=== PATIENT | female | born 1985 | race Two or more races ===

== ENCOUNTER 2025-05-07 04:26 | Inpatient (IN) | payer MEDICAID ==
[~2025-05-07] VITALS: Ht 160 cm; Wt 98.6 kg
--- NOTE | 2025-05-07 05:39 | ED.PDOC ---
GI ASSESSMENT HPI Comments 40-year-old female who came to the ER for abdominal pain. Patient states she was awakened around 12 midnight due to sudden-onset lower abdominal pain, describe a sharp, constant, nonradiating, associated with chills, nausea and vomiting. She denies any urinary symptoms such as dysuria or gross hematuria. She denies any fever, vaginal bleeding or discharge. Denies any possibility of Chief Complaint: Abdominal Pain Time Seen by MD: 05:39 Reviewed Notes: Nurses Notes Allergies: Coded Allergies: No Known Drug Allergy (Verified Allergy, Unknown, 05/07/25) Information Source: Patient Mode of Arrival: Ambulatory Timing: Hours Duration: Since onset Prehospital treatment: None Quality: Sharp Vomitus: Watery Stool: Normal Severity: Moderate Recent: None Recent Hx of: None Pain Location: Suprapubic Associated sign and symptoms: Nausea, Vomiting, Abdominal Pain Past Medical History PAST MEDICAL HISTORY: Denies Surgical History: Denies all surgeries CHANGE OVER History: Denies all CHANGE OVER Hx Family History Family History: Reviewed,noncontributory to illness Social History Smoker: Non-Smoker Alcohol: Denies ETOH Use Drugs: Denies Drug Use Lives In: Home Constitutional: denies: chills, diaphoresis, fatigue, fever, malaise, sweats, weakness, others EENTM: denies: blurred vision, double vision, ear bleeding, ear discharge, ear drainage, ear pain, ear ringing, eye pain, eye redness, hearing loss, mouth pain, mouth swelling, nasal discharge, nose bleeding, nose congestion, nose pain, photophobia, tearing, throat pain, throat swelling, voice changes, others Respiratory: denies: cough, hemoptysis, orthopnea, SOB at rest, shortness of breath, SOB with excertion, stridor, wheezing, others Cardiovascular: denies: chest pain, dizzy spells, diaphoresis, Dyspnea on exertion, edema, irregular heart beat, left arm pain, lightheadedness, palpitations, PND, syncope, others Gastrointestinal: reports: abdominal pain, nausea, vomiting; denies: abdomen distended, blood streaked bowels, constipated, diarrhea, dysphagia, difficulty swallowing, hematemesis, melena, poor appetite, poor fluid intake, rectal bleeding, rectal pain, others Genitourinary: denies: abnormal vagina bleeding, burning, dyspareunia, dysuria, flank pain, frequency, hematuria, incontinence, pain, , vagina discharge, urgency, others Neurological: denies: dizziness, fainting, headache, left sided numbness, left sided weakness, numbness, paresthesia, pre-existing deficit, right sided numbness, right sided weakness, seizure, speech problems, tingling, tremors, weakness, others Musculoskeletal: denies: back pain, gout, joint pain, joint swelling, muscle pain, muscle stiffness, neck pain, others Integumetry: denies: bruises, change in color, change in hair/nails, dryness, laceration, lesions, lumps, rash, wounds, others Allergic/Immunocompromised: denies: Difficulty Healing, Frequent Infections, Hives, Itching, others Hematologic/Lymphatic: denies: anemia, blood clots, easy bleeding, easy bruising, swollen glands, others Endocrine: denies: excessive hunger, excessive sweating, excessive thirst, excessive urination, flushing, intolerance to cold, intolerance to heat, unexplained weight gain, unexplained weight loss, others Psychiatric: denies: anxiety, bipolar disorder, depression, hopeless, panic disorder, schizophrenia, sleepless, suicidal, others Physical Exam General Appearance: Moderate Distress, Obese HEENT: Other (Pupils and face symmetric. Moist mucous membranes.) Neck: Full Range of Motion, Normal Inspection Respiratory: Lungs Clear, No Accessory Muscle Use, No Respiratory Distress, Normal Breath Sounds Cardiovascular: No Edema, No JVD, Regular Rate/Rhythm Breast Exam: Deferred Gastrointestinal: LLQ, RLQ, Soft, Suprapubic, Tenderness Genitalia: Deferred Pelvic: Deferred Rectal: Deferred Extremities: Normal inspection, Normal range of motion, Non-tender, No pedal edema Neurologic: Alert (Oriented x4), Normal Affect, Normal Mood, Other (Ambulatory) Cerebellar Function: NOT DONE Reflexes: NOT DONE Skin: Dry, Normal Color, Warm Lymphatic: NOT DONE Was a procedure done? Was a procedure done?: No GI differential Dx Differential Diagnosis: Appendicitis, Constipation, Diverticular disease, Dysmenorrhea, Ectopic , Gastritis/PUD, Gastroenteritis, Inflammatory BD, UTI, Urolithiasis, Food Poisoning, , Bacterial, Viral, Impaction, Kidney Stone X-Ray, Labs, Meds, VS Vital Signs Date Time Temp Pulse Resp B/P (MAP) Pulse Ox O2 Delivery O2 Flow Rate FiO2 05/07/25 06:16 95 20 129/58 05/07/25 06:15 Room Air* 0 21 05/07/25 06:15 97.8 95 20 129/58 (81) 97 97.8 05/07/25 05:27 98.6 110 22 138/70 (92) 96 98.6 Lab Test 05/07/25 04:52 Range/Units White Blood Count 17.3 H 4.4-10.8 10^3/uL Red Blood Count 5.09 4.0-5.20 10^6/uL Hemoglobin 15.7 12.2-16.2 g/dL Hematocrit 45.6 36.0-46.0 % Mean Corpuscular Volume 89.6 80.0-100.0 fL Mean Corpuscular Hemoglobin 30.8 28.0-32.0 pg Mean Corpuscular Hemoglobin Concent 34.4 32.0-36.0 g/dL Red Cell Distribution Width 14.8 H 11.8-14.3 % Platelet Count 305 140-450 10^3/uL Mean Platelet Volume 9.0 6.9-10.8 fL Neutrophils (%) (Auto) 79.3 37.0-80.0 % Lymphocytes (%) (Auto) 15.4 10.0-50.0 % Monocytes (%) (Auto) 4.2 0.0-12.0 % Eosinophils (%) (Auto) 0.8 0.0-7.0 % Basophils (%) (Auto) 0.3 0.0-2.0 % Neutrophils # (Auto) 13.8 H 1.6-8.6 10 ^3/uL Lymphocytes # (Auto) 2.7 0.4-5.4 10 ^3/uL Monocytes # (Auto) 0.7 0-1.3 10 ^3/uL Eosinophils # (Auto) 0.1 0-0.8 10 ^3/uL Basophils # (Auto) 0.1 0-0.2 10 ^3/uL Nucleated Red Blood Cells 0.0 % Sodium Level 141 136-145 mmol/L Potassium Level 4.2 3.5-5.1 mmol/L Chloride Level 104 98-107 mmol/L Carbon Dioxide Level 27 20-31 mmol/L Anion Gap 10 5-15 Blood Urea Nitrogen 11 9-23 mg/dL Creatinine 0.95 0.550-1.02 mg/dL Glomerular Filtration Rate Calc 78 >90 mL/min BUN/Creatinine Ratio 11.6 10.0-20.0 Serum Glucose 140 H 74-106 mg/dL Calcium Level 9.5 8.7-10.4 mg/dL Total Bilirubin 0.5 0.2-1.0 mg/dL Aspartate Amino Transferase (AST) 30 <34 U/L Alanine Aminotransferase (ALT) 44 H 7-40 U/L Alkaline Phosphatase 141 H 46-116 U/L Total Protein 8.1 5.7-8.2 g/dL Albumin 4.7 3.2-4.8 g/dL Lipase 37 12-53 U/L Current Medications Medications (Trade) Dose Ordered Sig/Nena Route Start Time Stop Time Status Last Admin Sodium Chloride 1,000 ml @ 1,000 mls/hr Q1H ONCE IV 05/07/25 05:15 05/07/25 06:14 DC 05/07/25 06:16 Ondansetron HCl (Zofran) 4 mg ONCE ONCE IV 05/07/25 05:15 05/07/25 05:16 DC 05/07/25 06:16 Morphine Sulfate 4 mg ONCE ONCE IV 05/07/25 05:15 05/07/25 05:16 DC 05/07/25 06:16 X-Ray, Labs, Meds, VS Comment 40-year-old female with no significant past medical history complaining of lower abdominal pain Vitals remarkable for heart rate 110, respiratory rate 22 Exam remarkable for lower abdominal tenderness to palpation Rhythm strip independently interpreted by me: Sinus tach, rate 110, no ectopy. CT abdomen and pelvis results pending CBC remarkable for WBC 17.3. CMP and lipase unremarkable. urine and UA results pending Patient treated with the following in the ED: 1 L 0.9 normal saline IV bolus, morphine 4 mg IV, Zofran 4 mg IV On re-evaluation, patient states pain has improved. Vitals were stable. Patient endorsed to the oncoming ED physician at 6:00 a.m. pending remainder of lab results, CT results and re-evaluation. Time of 1ST Reevaluation: 05:36 Reevaluation 1ST: Unchanged Patient Education/Counseling: Diagnosis, Treatment Family Education/Counseling: Diagnosis, Treatment SEPSIS Sepsis Screen Physician Orders Urinalysis (05/07/25 04:40) Ct Ab Pel Wo Con-No Oral Or Iv (05/07/25 04:40) Test, Urine (05/07/25 04:40) Vital Signs Date Time Temp Pulse Resp B/P (MAP) Pulse Ox O2 Delivery O2 Flow Rate FiO2 05/07/25 06:16 95 20 129/58 05/07/25 06:15 Room Air* 0 21 05/07/25 06:15 97.8 95 20 129/58 (81) 97 97.8 05/07/25 05:27 98.6 110 22 138/70 (92) 96 98.6 Laboratory Tests Test 05/07/25 04:52 White Blood Count 17.3 10^3/uL (4.4-10.8) H Medications Medications Dose Ordered Sig/Nena Route Start Time Stop Time Status Last Admin Dose Admin Morphine Sulfate 4 mg ONCE ONCE IV 05/07/25 05:15 05/07/25 05:16 DC 05/07/25 06:16 Ondansetron HCl 4 mg ONCE ONCE IV 05/07/25 05:15 05/07/25 05:16 DC 05/07/25 06:16 Sodium Chloride 1,000 ml @ 1,000 mls/hr Q1H ONCE IV 05/07/25 05:15 05/07/25 06:14 DC 05/07/25 06:16 Departure 1 Departure Time of Disposition: 06:00 Impression: Primary Impression: Lower abdominal pain Disposition: 30 STILL A PATIENT Condition: Guarded Critical Care Note Critical Care Time?: No Stability Stability form required: No Heart Score Heart Score: Heart Score Response (Comments) Value History N/A 0 EKG N/A 0 Age N/A 0 Risk Factors N/A 0 Troponin N/A 0 Total 0 I personally scribed for JIM GALLOWAY MD ([email or web address]) on 05/07/25 at 05:39. Electronically submitted by Rosalio Mehta ([email or web address]). JIM GALLOWAY MD May 07, 2025 05:39
[2025-05-07 05:43] LABS: Basophils # (auto) 0.1 10 ^3/uL (0-0.2); Basophils % (auto) 0.3 % (0.0-2.0); Eosinophils # (auto) 0.1 10 ^3/uL (0-0.8); Eosinophils % (auto) 0.8 % (0.0-7.0); Hematocrit 45.6 % (36.0-46.0); Hemoglobin 15.7 g/dL (12.2-16.2); Lymphocytes # (auto) 2.7 10 ^3/uL (0.4-5.4); Lymphocytes % (auto) 15.4 % (10.0-50.0); Mean Corpuscular Hemoglobin 30.8 pg (28.0-32.0); Mean Corpuscular Hgb Conc. 34.4 g/dL (32.0-36.0); Mean Corpuscular Volume 89.6 fL (80.0-100.0); Monocytes # (auto) 0.7 10 ^3/uL (0-1.3); Monocytes % (auto) 4.2 % (0.0-12.0); Neutrophils # (auto) 13.8 10 ^3/uL (1.6-8.6); Neutrophils % (auto) 79.3 % (37.0-80.0); Platelet Count (auto) 305 10^3/uL (140-450); Red Blood Cells 5.09 10^6/uL (4.0-5.20); Red Cell Distribution Width 14.8 % (11.8-14.3); White Blood Cell 17.3 10^3/uL (4.4-10.8)
[2025-05-07 06:04] LABS: Anion Gap 10 (5-15); BUN/Creatinine Ratio 11.6 (10.0-20.0); Blood Urea Nitrogen 11 mg/dL (9-23); Calcium 9.5 mg/dL (8.7-10.4); Carbon Dioxide 27 mmol/L (20-31); Chloride 104 mmol/L (98-107); Lipase 37 U/L (12-53); Potassium 4.2 mmol/L (3.5-5.1); Sodium 141 mmol/L (136-145); Total Protein 8.1 g/dL (5.7-8.2)
[2025-05-07 06:05] LABS: Albumin 4.7 g/dL (3.2-4.8); Aspartate Aminotransferase 30 U/L (<34); Bilirubin, Total 0.5 mg/dL (0.2-1.0)
[2025-05-07 06:13] LABS: Alanine Aminotransferase 44 U/L (7-40); Alkaline Phosphatase 141 U/L (46-116); Glucose 140 mg/dL (74-106)
[2025-05-07] MEDS: MORPHINE SULFATE 4 MG/ML SYR/VIAL IV ONE (06:16)
[2025-05-07] MEDS: SODIUM CHLORIDE 0.9% 1,000 ML IV ONE (06:16)
[2025-05-07] MEDS: ONDANSETRON HCL 4 MG/2 ML VIAL IV ONE ×2 (06:16→14:24)
[2025-05-07 07:55] LABS: Urine Bacteria FEW /hpf (None Seen); Urine Mucus FEW (None Seen); Urine Squamous Epithelial Cell MANY /hpf (<5); Urine WBC 11 /HPF (0-5)
[2025-05-07 07:56] LABS: Urine Clarity Hazy (Clear); Urine Color Yellow (Yellow)
[2025-05-07 07:57] LABS: Urine Blood Normal /uL (Negative); Urine Protein, UAD Negative (Negative); Urine Specific Gravity 1.027 (1.001-1.035); Urine Urobilinogen Normal (Negative); Urine pH 5.5 (5.0-9.0)
--- NOTE | 2025-05-07 08:22 | DVH ---
Exam: CT CT AB PEL WO CON-NO ORAL OR IV History: abd pain Comparison Study: None Technique: Multidetector spiral CT of the abdomen was performed from lung bases to pubic symphysis. Imaging was performed without IV contrast. Axial, coronal and sagittal multiplanar reformats were ob tained from the axial data set by the technologist. Radiation dose : 1. Abdomen/Pelvis: CTDIvol 24.99 mGy, DLP 1258.84 mGy*cm. Findings: Image lower lungs are unremarkable. The liver, spleen, pancreas, and adrenal glands are within normal limits. Status post cholecystectomy . The kidneys and urinary bladder within normal limits. And the uterus is retroverted with an intrauter ine device which appears in good position. 2.5 cm left ovarian cyst. The appendix is dilated with associated inflammatory change. There is slight matting of the adjacent small bowel loops with reactive haziness of the mesentery. IMPRESSION: 1. Findings compatible with acute appendicitis. No abscess or free air.
--- NOTE | 2025-05-07 09:11 | DVHHP2 ---
History of Present Illness Reason for Visit: Abdominal pain History of Present Illness 40-year-old female no past medical history surgical history gallbladder surgery chief complaint patient complain of lower abdominal pain it started at midnight at last night. Patient states pain is sharp in nature movement makes it worse leaning forward improves the pain she does complain of chills but no fever patient states she had to take Tylenol but it did not improve her symptoms patient states she did not vomited 6 times but there was no blood there she had not able to keep anything down she denies any diarrhea she denies any chest pain no shortness with the breath when evaluating patient's labs and imaging from ED white count was 17.3 CBC was unremarkable glucose was 140 without history diabetes alkaline phosphatase 141 ALT was 44 UA showed a few bacteria with these findings we will admit patient ask for General surgery evaluation NPO IV fluids antibiotics and pain meds. Past Medical History See HPI above Past Surgical History See HPI above Family History Reviewed, non-contributory to the management of this case. Past Social History The patient lives at home, denies smoking, alcohol or illicit drugs abuse. Review of Systems Constitutional: No: Fever, Chills, Sweats, Weakness, Malaise, Other Eyes: No: Pain, Vision change, Conjunctivae inflammation, Eyelid inflammation, Other, Redness ENT: No: Ear pain, Ear discharge, Nose pain, Nose discharge, Nose congestion, Mouth pain, Mouth swelling, Throat pain, Throat swelling, Other Respiratory: No: Cough, Dry, Shortness of breath, SOB with excertion, Wheezing, Hemoptysis, Pleuritic Pain, Sputum, Wheezing, Other Cardiovascular: No: Chest Pain, Palpitations, Orthopnea, Paroxysmal Noc. Dyspnea, Edema, Lt Headedness, Other Gastrointestinal: Nausea, Vomiting, Abdominal Pain; No: Diarrhea, Constipation, Melena, Hematochezia, Other Genitourinary: No Dysuria, No Frequency, No Incontinence, No Hematuria, No Retention, No Other Musculoskeletal: No: other, neck pain, shoulder pain, arm pain, back pain, hand pain, leg pain, foot pain Skin: No: Rash, Lesions, Jaundice, Bruising, Other Neurological: No: Weakness, Numbness, Incoordination, Change in speech, Confusion, Seizures, Other Allergies: Coded Allergies: No Known Drug Allergy (Verified Allergy, Unknown, 05/07/25) Exam Vital Signs Vital Signs Date Time Temp Pulse Resp B/P (MAP) Pulse Ox O2 Delivery O2 Flow Rate FiO2 05/07/25 07:47 98.3 110 18 139/86 (103) 99 98.3 05/07/25 06:15 Room Air* 0 21 General Appearance: Alert, Oriented X3, Cooperative, No acute distress HEENT: Atraumatic, PERRLA, EOMI, Mucous membr. moist/pink Respiratory: Clear to auscultation, Normal air movement Cardiovascular: Regular rate, Normal S1, Normal S2, No murmurs Abdominal: Normal bowel sounds, Soft, No hepatospenomegaly, No masses, Other (Guarding and rebound tenderness to lower abdomen) Extremities: No clubbing, No cyanosis, No edema, Normal pulses, No tenderness/swelling Skin: No rashes, No breakdown, No significant lesion Neuro: Normal gait, Normal speech, Strength at 5/5 X4 ext, Normal tone, Sensation intact, Cranial nerves 3-12 NL Psych/Mental Status: Mental status NL, Mood NL Labs/Xrays CT scan abdomen pelvis shows acute appendicitis I reviewed labs, imaging CT scan abdomen pelvis, EKG and all diagnostic studies on this patient from ED records and the medical chart Labs Test 05/07/25 07:16 05/07/25 04:52 Range/Units Urine Color Yellow Yellow Urine Clarity Hazy H Clear Urine pH 5.5 5.0-9.0 Urine Specific [place] 1.027 1.001-1.035 Urine Protein Negative Negative Urine Ketones Negative Negative Urine Blood Normal Negative /uL Urine Nitrite Negative Negative Urine Bilirubin Negative Negative Urine Urobilinogen Normal Negative mg/dL Urine Leukocyte Esterase 1+ Negative /uL Urine RBC 7 0 - 4 /hpf Urine Microscopic WBC 11 H 0-5 /HPF Urine Squamous Epithelial Cells Many <5 /hpf Urine Bacteria Few H None Seen /hpf Urine Mucus Few None Seen Urine Glucose Normal Normal mg/dL Urine Test Negative Negative White Blood Count 17.3 H 4.4-10.8 10^3/uL Red Blood Count 5.09 4.0-5.20 10^6/uL Hemoglobin 15.7 12.2-16.2 g/dL Hematocrit 45.6 36.0-46.0 % Mean Corpuscular Volume 89.6 80.0-100.0 fL Mean Corpuscular Hemoglobin 30.8 28.0-32.0 pg Mean Corpuscular Hemoglobin Concent 34.4 32.0-36.0 g/dL Red Cell Distribution Width 14.8 H 11.8-14.3 % Platelet Count 305 140-450 10^3/uL Mean Platelet Volume 9.0 6.9-10.8 fL Neutrophils (%) (Auto) 79.3 37.0-80.0 % Lymphocytes (%) (Auto) 15.4 10.0-50.0 % Monocytes (%) (Auto) 4.2 0.0-12.0 % Eosinophils (%) (Auto) 0.8 0.0-7.0 % Basophils (%) (Auto) 0.3 0.0-2.0 % Neutrophils # (Auto) 13.8 H 1.6-8.6 10 ^3/uL Lymphocytes # (Auto) 2.7 0.4-5.4 10 ^3/uL Monocytes # (Auto) 0.7 0-1.3 10 ^3/uL Eosinophils # (Auto) 0.1 0-0.8 10 ^3/uL Basophils # (Auto) 0.1 0-0.2 10 ^3/uL Nucleated Red Blood Cells 0.0 % Sodium Level 141 136-145 mmol/L Potassium Level 4.2 3.5-5.1 mmol/L Chloride Level 104 98-107 mmol/L Carbon Dioxide Level 27 20-31 mmol/L Anion Gap 10 5-15 Blood Urea Nitrogen 11 9-23 mg/dL Creatinine 0.95 0.550-1.02 mg/dL Glomerular Filtration Rate Calc 78 >90 mL/min BUN/Creatinine Ratio 11.6 10.0-20.0 Serum Glucose 140 H 74-106 mg/dL Calcium Level 9.5 8.7-10.4 mg/dL Total Bilirubin 0.5 0.2-1.0 mg/dL Aspartate Amino Transferase (AST) 30 <34 U/L Alanine Aminotransferase (ALT) 44 H 7-40 U/L Alkaline Phosphatase 141 H 46-116 U/L Total Protein 8.1 5.7-8.2 g/dL Albumin 4.7 3.2-4.8 g/dL Lipase 37 12-53 U/L Assessment/Plan Assessment/Plan acute appendicitis without abscess or perforation found on ct scan ordered ceftriaxone and flagyl ordered morphine as needed for pain ordered general surgery [facility] [place] [facility] recs npo for now ordered ivf ordered protonix acute leukocytosis likely from appendicitis cont ceftriaxone and flagyl for now acute transaminitis mild monitor fen/ppx npo for now ivf protonix no dvt ppx since pt ambulatory plan admit to medicine for iv antibiotics and pain management Plan discussed with: Patient, Spouse My Orders Orders - ALEJANDRO NAIK DNP Procedure Category Date Status Time *Consult Dr. Varela CONS 05/07/25 Verified 09:02 Admit ADMIT 05/07/25 Verified 09:02 Allergies REED 05/07/25 Verified 09:02 Code Status CODE 05/07/25 Verified 09:02 0.9% Ns 1000 Ml PHA 05/07/25 Verified 09:15 Ondansetron Hcl PHA 05/07/25 Verified (Zofran) 09:15 Docusate Sodium PHA 05/07/25 Verified Capsule (Colace 09:15 Date of Service: May 07, 2025 Billing Provider: ALEJANDRO NAIK DNP Common Visit Codes: [id number] INP/OBS CARE (HIGH) ALEJANDRO NAIK DNP May 07, 2025 09:11
[2025-05-07] MEDS ORDERED: NITROGLYCERIN 0.4 MG SL TAB SL PRN (09:15)
[2025-05-07] MEDS ORDERED: DOCUSATE SOD 100 MG CAP PO PRN (09:15)
[2025-05-07] MEDS ORDERED: SODIUM CHLORIDE 0.9% 1,000 ML IV SCH (09:15)
[2025-05-07] MEDS: metroNIDAZOLE 500MG/100ML 100 ML IV ONE (09:47)
[2025-05-07] MEDS: cefTRIAXone 1GM/50ML D5W 50 ML IV ONE (09:48)
[2025-05-07] MEDS: ONDANSETRON HCL 4 MG/2 ML VIAL IV PRN (09:48)
[2025-05-07] MEDS: PANTOPRAZOLE 40 MG/10 ML VIAL INJ IV ONE (09:48)
[2025-05-07] MEDS: MORPHINE SULFATE INJ 2 MG/ml SYRG IV PRN (09:50)
[2025-05-07] MEDS: ceFAZolin 1GM/50ML 100 ML IV ONE (10:01)
[2025-05-07 10:02] LABS: INR 0.98 (0.9-1.15); Prothrombin Time 10.4 sec (9.3-11.8)
[2025-05-07] MEDS ORDERED: fentaNYL CITRATE 100 MCG/2 ML VL ONE ×2 (11:26→12:01)
[2025-05-07] MEDS ORDERED: MIDAZOLAM HCL 2MG/2ML 2ml VIAL (1mg/ml) ONE (11:26)
--- NOTE | 2025-05-07 11:30 | DVHINCON2 ---
Date of service: May 07, 2025 Allergies: Coded Allergies: No Known Drug Allergy (Verified Allergy, Unknown, 05/07/25) Current Medications Current Medications Medications (Trade) Dose Ordered Sig/Nena Route PRN Reason Start Time Stop Time Status Last Admin Sodium Chloride 1,000 ml @ 120 mls/hr Q8H20M IV 05/07/25 09:15 Ondansetron HCl (Zofran) 4 mg Q4HP PRN IV NAUSEA / VOMITING 05/07/25 09:15 05/07/25 09:48 Docusate Sodium (Colace Capsule) 100 mg BIDPRN PRN PO FOR CONSTIPATION 05/07/25 09:15 Morphine Sulfate 2 mg Q4HPRN PRN IV SEVERE PAIN (7-10 PAIN SCALE) 05/07/25 09:15 05/07/25 09:50 Nitroglycerin (Ntrostat Sublingual) 0.4 mg Q5MINP PRN SL FOR CHEST PAIN 05/07/25 09:15 Ceftriaxone Sodium 50 ml @ 100 mls/hr DAILY@09 IV 05/08/25 09:00 Metronidazole 100 ml @ 100 mls/hr Q8HR IV 05/07/25 14:00 Pantoprazole Sodium (Protonix) 40 mg DAILY IV 05/08/25 10:00 Vital Signs Vital Signs Date Time Temp Pulse Resp B/P (MAP) Pulse Ox O2 Delivery O2 Flow Rate FiO2 05/07/25 09:51 97.9 115 22 114/81 (92) 99 97.9 05/07/25 06:15 Room Air* 0 21 Labs/Diagnostic Data Labs Test 05/07/25 09:13 05/07/25 07:16 05/07/25 04:52 Range/Units Prothrombin Time 10.4 9.3-11.8 sec Prothrombin Time INR 0.98 0.9-1.15 Urine Color Yellow Yellow Urine Clarity Hazy H Clear Urine pH 5.5 5.0-9.0 Urine Specific [place] 1.027 1.001-1.035 Urine Protein Negative Negative Urine Ketones Negative Negative Urine Blood Normal Negative /uL Urine Nitrite Negative Negative Urine Bilirubin Negative Negative Urine Urobilinogen Normal Negative mg/dL Urine Leukocyte Esterase 1+ Negative /uL Urine RBC 7 0 - 4 /hpf Urine Microscopic WBC 11 H 0-5 /HPF Urine Squamous Epithelial Cells Many <5 /hpf Urine Bacteria Few H None Seen /hpf Urine Mucus Few None Seen Urine Glucose Normal Normal mg/dL Urine Test Negative Negative White Blood Count 17.3 H 4.4-10.8 10^3/uL Red Blood Count 5.09 4.0-5.20 10^6/uL Hemoglobin 15.7 12.2-16.2 g/dL Hematocrit 45.6 36.0-46.0 % Mean Corpuscular Volume 89.6 80.0-100.0 fL Mean Corpuscular Hemoglobin 30.8 28.0-32.0 pg Mean Corpuscular Hemoglobin Concent 34.4 32.0-36.0 g/dL Red Cell Distribution Width 14.8 H 11.8-14.3 % Platelet Count 305 140-450 10^3/uL Mean Platelet Volume 9.0 6.9-10.8 fL Neutrophils (%) (Auto) 79.3 37.0-80.0 % Lymphocytes (%) (Auto) 15.4 10.0-50.0 % Monocytes (%) (Auto) 4.2 0.0-12.0 % Eosinophils (%) (Auto) 0.8 0.0-7.0 % Basophils (%) (Auto) 0.3 0.0-2.0 % Neutrophils # (Auto) 13.8 H 1.6-8.6 10 ^3/uL Lymphocytes # (Auto) 2.7 0.4-5.4 10 ^3/uL Monocytes # (Auto) 0.7 0-1.3 10 ^3/uL Eosinophils # (Auto) 0.1 0-0.8 10 ^3/uL Basophils # (Auto) 0.1 0-0.2 10 ^3/uL Nucleated Red Blood Cells 0.0 % Sodium Level 141 136-145 mmol/L Potassium Level 4.2 3.5-5.1 mmol/L Chloride Level 104 98-107 mmol/L Carbon Dioxide Level 27 20-31 mmol/L Anion Gap 10 5-15 Blood Urea Nitrogen 11 9-23 mg/dL Creatinine 0.95 0.550-1.02 mg/dL Glomerular Filtration Rate Calc 78 >90 mL/min BUN/Creatinine Ratio 11.6 10.0-20.0 Serum Glucose 140 H 74-106 mg/dL Calcium Level 9.5 8.7-10.4 mg/dL Total Bilirubin 0.5 0.2-1.0 mg/dL Aspartate Amino Transferase (AST) 30 <34 U/L Alanine Aminotransferase (ALT) 44 H 7-40 U/L Alkaline Phosphatase 141 H 46-116 U/L Total Protein 8.1 5.7-8.2 g/dL Albumin 4.7 3.2-4.8 g/dL Lipase 37 12-53 U/L Assessment 40 YEAR OLD FEMALE WITH 15 HOUR HISTORY OF ABDOMINAL PAIN, RIGHT LOWER QUADRANT POINT TENDERNESS WITH REBOUND, POSITIVE OBTURATOR AND PSOAS SIGNS, CT EVIDENCE OF APPENDICITIS, APPENDECTOMY A9;LAPAROSCOPIC VS OPEN) RISKS AND COMPLICATIONS EXPLAINED IN DETAIL Plan discussed with: Patient, Spouse MONIK MONTALVO MD May 07, 2025 11:30
[2025-05-07 12:10] VITALS: PULSE 99; RESP 20; O2SAT 91
--- NOTE | 2025-05-07 12:12 | DVH ---
CHEST RADIOGRAPH Indication: PRE PROCEDURE Technique: Single frontal view of the chest was obtained Comparison: None FINDINGS: Lines and Tubes: None Lungs and Pleura: Pulmonary vascular congestion. No focal consolidation. No effusion. No pneumothorax. Cardiomediastinal contours: Unremarkable Bones: No acute osseous abnormality. IMPRESSION: Pulmonary vascular congestion. No focal consolidation.
[2025-05-07 12:20] VITALS: PULSE 97; RESP 20; O2SAT 98
--- NOTE | 2025-05-07 12:26 | DVHOP ---
DATE OF SURGERY: 05/07/2025 PREOPERATIVE DIAGNOSIS: Acute suppurative appendicitis. POSTOPERATIVE DIAGNOSIS: Acute suppurative appendicitis. SURGEON: Amador Varela MD ANESTHESIA: General endotracheal. ANESTHESIOLOGIST: MARQUITA DESCRIPTION OF PROCEDURE: Under general anesthesia, the patient's skin prepped and draped. A supraumbilical incision was made and Veress needle inserted into the peritoneal cavity by the hanging drop technique in order to establish pneumoperitoneum to 15 mmHg pressure by insufflation with carbon dioxide. With the abdomen fully distended, the needle was removed and replaced with a 5-mm trocar port through which a 0-degree viewing laparoscope was inserted and under direct vision, 5 and 10 mm ports inserted through the upper abdomen. The laparoscopy was hampered by the patient's obesity; however, no obvious unexpected pathology was encountered. The appendix was acutely inflamed, placed on tension by Rick clamp, and then traced to its confines with the cecum. At the base of the appendix, the appendix and mesoappendix were divided with an Endo ADE stapler equipped with vascular sharan. The specimen was removed from the peritoneal cavity by placement in a specimen extraction bag, which was then withdrawn through the 10-mm port site in the infraumbilical skin. Following this maneuver, the right lower quadrant was profusely irrigated. Irrigant was aspirated. Hemostasis was meticulously inspected and found to be complete. At the termination of the procedure, there was no evidence of bleeding from either the appendectomy sites or from the port sites. Instrumentation was withdrawn. Pneumoperitoneum was evacuated. The fascia defect closed using 0 Vicryl and metallic skin sharan were then used for approximation of all skin edges. The patient remained stable throughout the procedure, left the operating room following an accurate needle and sponge counts. The patient's was thoroughly informed at [phone]. Amador Varela MD PF/JOSE LUIS TID: [id number] RECEIPT: [id number]
[2025-05-07 12:30] VITALS: PULSE 104; RESP 19; O2SAT 97
[2025-05-07] MEDS: HYDROmorphone HCL 2 MG/ML VL/or syr IV ONE (12:40)
[2025-05-07] MEDS ORDERED: HYDROmorphone HCL 2 MG/ML VL/or syr IV PRN (12:45)
[2025-05-07] MEDS: ACETAMINOPHEN IV 1000 MG/100ML (10MG/ML) IV ONE (12:58)
[2025-05-07] MEDS: HYDROmorphone HCL 2 MG/ML VL/or syr ONE (12:59)
[2025-05-07] MEDS: ACETAMINOPHEN IV 100 ML IV ONE (12:59)
[2025-05-07] MEDS: HYDROmorphone HCL 2 MG/ML VL/or syr IV PRN (13:02)
[2025-05-07] MEDS: D5W/SOD CHL 0.45%/KCL 20MEQ 1,000 ML IV SCH (13:09)
[2025-05-07] MEDS ORDERED: metroNIDAZOLE 500MG/100ML 100 ML IV SCH ×2 (14:00)
[2025-05-07 14:18] VITALS: O2SAT 98
[2025-05-07] MEDS: PROCHLORPERAZINE EDISYLATE 5 MG/ML 2ML VIAL IV ONE (14:24)
[2025-05-07] MEDS: METOCLOPRAMIDE HCL 5MG/ml INJ 2ml VIAL IV ONE (14:24)
[2025-05-07] MEDS ORDERED: SEMA4INJ (14:45)
[2025-05-07] MEDS ORDERED: LEVO125T7 PO (14:45)
[2025-05-07] MEDS ORDERED: ceFAZolin 2 GM/D5W50ml 50 ML IV SCH (15:00)
[2025-05-07] MEDS: ceFAZolin 2 GM/D5W50ml 50 ML IV SCH (17:17)
[2025-05-07] MEDS: metroNIDAZOLE 500MG/100ML 100 ML IV SCH (17:41)
[2025-05-07 21:00] VITALS: BP 109/74; PULSE 105; RESP 18; TEMP 97.7; O2SAT 92
[2025-05-08] VITALS (8 sets, daily range): BP systolic 93–118; BP diastolic 43–76; PULSE 77–105; RESP 16–19; TEMP 97–97.9; O2SAT 93–96
[2025-05-08 06:29] LABS: Basophils # (auto) 0 10 ^3/uL (0-0.2); Basophils % (auto) 0.1 % (0.0-2.0); Eosinophils # (auto) 0 10 ^3/uL (0-0.8); Hematocrit 40.1 % (36.0-46.0); Hemoglobin 13.4 g/dL (12.2-16.2); Lymphocytes # (auto) 1.7 10 ^3/uL (0.4-5.4); Lymphocytes % (auto) 10.1 % (10.0-50.0); Mean Corpuscular Hgb Conc. 33.4 g/dL (32.0-36.0); Mean Corpuscular Volume 89.8 fL (80.0-100.0); Monocytes # (auto) 0.6 10 ^3/uL (0-1.3); Monocytes % (auto) 3.5 % (0.0-12.0); Neutrophils # (auto) 14.6 10 ^3/uL (1.6-8.6); Neutrophils % (auto) 86.3 % (37.0-80.0); Nucleated Red Blood Cells % 0.1 %; Platelet Count (auto) 265 10^3/uL (140-450); Red Blood Cells 4.46 10^6/uL (4.0-5.20); Red Cell Distribution Width 14.5 % (11.8-14.3); White Blood Cell 16.9 10^3/uL (4.4-10.8)
[2025-05-08 06:58] LABS: Albumin 3.9 g/dL (3.2-4.8); Alkaline Phosphatase 112 U/L (46-116); Anion Gap 12 (5-15); Bilirubin, Total 0.4 mg/dL (0.2-1.0); Calcium 9.3 mg/dL (8.7-10.4); Carbon Dioxide 23 mmol/L (20-31); Chloride 106 mmol/L (98-107); Glucose 105 mg/dL (74-106); Potassium 3.7 mmol/L (3.5-5.1); Sodium 141 mmol/L (136-145); Total Protein 6.6 g/dL (5.7-8.2)
[2025-05-08 07:13] LABS: Alanine Aminotransferase 103 U/L (7-40); Aspartate Aminotransferase 65 U/L (<34); BUN/Creatinine Ratio 8.1 (10.0-20.0); Blood Urea Nitrogen < 5 mg/dL (9-23)
[2025-05-08] MEDS: PANTOPRAZOLE 40 MG/10 ML VIAL INJ IV SCH (08:40)
[2025-05-08] MEDS ORDERED: cefTRIAXone 1GM/50ML D5W 50 ML IV SCH (09:00)
--- NOTE | 2025-05-08 09:20 | DVHPN2 ---
Subjective Date Seen: May 08, 2025 Post op day Post op day: 1 Patient reports: No new complaints Nursing reports: No new complaints General: Normal HNT: Normal Cardiovascular: Normal Respiratory: Normal Gastrointestinal: Normal Genitourinary: Normal Musculoskeletal: Normal Neurological: Normal Objective Vitals Vital Sign Date Time Temp Pulse Resp B/P (MAP) Pulse Ox O2 Delivery O2 Flow Rate FiO2 05/08/25 07:06 97 19 106/74 05/08/25 05:00 97.8 93 97.8 05/07/25 20:00 Room Air* 0 21 Total Intake and Output 05/07/25 05/07/25 05/08/25 15:00 23:00 07:00 Intake Total 1000 ml 300 ml 250 ml Balance 1000 ml 300 ml 250 ml Medications Current Medications Medications Dose Ordered Sig/Nena Route Start Time Stop Time Status Last Admin Dose Admin Ondansetron HCl 4 mg Q4HP PRN IV 05/07/25 09:15 05/08/25 06:35 4 MG Docusate Sodium 100 mg BIDPRN PRN PO 05/07/25 09:15 Morphine Sulfate 2 mg Q4HPRN PRN IV 05/07/25 09:15 05/08/25 06:36 2 MG Nitroglycerin 0.4 mg Q5MINP PRN SL 05/07/25 09:15 Pantoprazole Sodium 40 mg DAILY IV 05/08/25 10:00 05/08/25 08:40 40 MG Potassium Chloride/Dextrose/ Sod Cl 1,000 ml @ 120 mls/hr Q8H20M IV 05/07/25 12:15 05/08/25 06:15 120 MLS/HR Cefazolin Sodium/ Dextrose 50 ml @ 50 mls/hr Q8H IV 05/07/25 18:00 05/08/25 08:40 50 MLS/HR Metronidazole 100 ml @ 100 mls/hr Q8H IV 05/07/25 18:00 05/08/25 01:04 100 MLS/HR General: Normal, Well developed, Well nourished Head/Eyes: Normal ENT: Normal Neck: Normal, Supple Lungs: Normal, Normal inspection Cardiovascular: Normal, Regular rate and rhythm Abdominal: Normal, Soft Musculoskeletal: Normal Labs and Microbiology Laboratory Tests 05/08/25 04:39 Test 05/08/25 04:39 Range/Units Serum Glucose 105 74-106 mg/dL Ass/Plan Labs and/or images reviewed: Labs reviewed by me Problems(with codes): (1) Appendicitis (2) S/P appendectomy (3) Lower abdominal pain Assessment/Plan no new complaints abdomen soft, non distended appropriately tender denies nausea and vomiting tolerating diet no flatus, no BM reviewed labs Plan: patient to ambulate outside of room continue IV hydration and antibiotics Prognosis: Good Plan discussed with patient, Dr. Varela Visit Coding Surgery Date of Service if different f: May 08, 2025 Billing Provider: MONIK VARELA MD Surgery Visit Codes: [id number] INP/OBS CARE(HIGH) PANCHO ARANGO NP May 08, 2025 09:20
[2025-05-08] MEDS: ENOXAPARIN SOD 40 MG/0.4 ML SYRINGE SC ONE (12:00)
--- NOTE | 2025-05-08 15:02 | DVHPN2 ---
Subjective 40-year-old female with a past medical history of hypothyroidism she is here for acute appendicitis status post laparoscopic appendectomy. Patient is currently denies any abdominal pain nausea. Currently tolerating clear liquid diet. Changes from previous H/P or p: No Changes Eyes: No Pain, No Vision change, No Conjunctivae inflammation, No Eyelid inflammation, No Other, No Redness ENT: No Ear pain, No Ear discharge, No Nose pain, No Nose discharge, No Nose congestion, No Mouth pain, No Mouth swelling, No Throat pain, No Throat swelling, No Other Cardiovascular: No Chest Pain, No Palpitations, No Orthopnea, No Paroxysmal Noc. Dyspnea, No Edema, No Lt Headedness, No Other Respiratory: No Cough, No Dry, No Shortness of breath, No SOB with excertion, No Wheezing, No Hemoptysis, No Pleuritic Pain, No Sputum, No Other Gastrointestinal: Nausea, Vomiting, Abdominal Pain; No Diarrhea, No Constipation, No Melena, No Hematochezia, No Other Genitourinary: No Dysuria, No Frequency, No Incontinence, No Hematuria, No Retention, No Other Musculoskeletal: No other, No neck pain, No shoulder pain, No arm pain, No back pain, No hand pain, No leg pain, No foot pain Skin: No Rash, No Lesions, No Jaundice, No Bruising, No Other Objective Vitals Vital Signs Date Time Temp Pulse Resp B/P (MAP) Pulse Ox O2 Delivery O2 Flow Rate FiO2 05/08/25 13:14 97.9 88 16 118/76 (90) 96 97.9 05/08/25 08:00 Room Air* 0 21 Intake/Output Intake and Output 05/08/25 07:00 Intake Total 1550 ml Balance 1550 ml Intake Oral 350 ml IV Total 1200 ml # Voids 4 Exam HEENT pupils are reactive Neck is supple CV is S1-S2 regular rate and rhythm Respiratory diminished breath sounds bases GI positive sluggish bowel sound Extremity no edema 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 Medications Current Medications Medications Dose Ordered Sig/Nena Route Start Time Stop Time Status Last Admin Dose Admin Ondansetron HCl 4 mg Q4HP PRN IV 05/07/25 09:15 05/08/25 06:35 4 MG Docusate Sodium 100 mg BIDPRN PRN PO 05/07/25 09:15 Morphine Sulfate 2 mg Q4HPRN PRN IV 05/07/25 09:15 05/08/25 06:36 2 MG Nitroglycerin 0.4 mg Q5MINP PRN SL 05/07/25 09:15 Pantoprazole Sodium 40 mg DAILY IV 05/08/25 10:00 05/08/25 08:40 40 MG Potassium Chloride/Dextrose/ Sod Cl 1,000 ml @ 120 mls/hr Q8H20M IV 05/07/25 12:15 05/08/25 06:15 120 MLS/HR Cefazolin Sodium/ Dextrose 50 ml @ 50 mls/hr Q8H IV 05/07/25 18:00 05/08/25 08:40 50 MLS/HR Metronidazole 100 ml @ 100 mls/hr Q8H IV 05/07/25 18:00 05/08/25 10:05 100 MLS/HR Enoxaparin Sodium 40 mg DAILY SC 05/09/25 10:00 Laboratory Results Laboratory Tests 05/08/25 04:39 Chemistry Test 05/08/25 04:39 Albumin 3.9 g/dL (3.2-4.8) Calcium Level 9.3 mg/dL (8.7-10.4) Total Protein 6.6 g/dL (5.7-8.2) LFT Test 05/08/25 04:39 Alanine Aminotransferase (ALT) 103 U/L (7-40) H Alkaline Phosphatase 112 U/L (46-116) Aspartate Amino Transferase (AST) 65 U/L (<34) H Total Bilirubin 0.4 mg/dL (0.2-1.0) Urinalysis Test 05/07/25 07:16 Urine Color Yellow (Yellow) Urine Clarity Hazy (Clear) H Urine pH 5.5 (5.0-9.0) Urine Specific [place] 1.027 (1.001-1.035) Urine Protein Negative (Negative) Urine Ketones Negative (Negative) Urine Blood Normal /uL (Negative) Urine Nitrite Negative (Negative) Urine Bilirubin Negative (Negative) Urine Urobilinogen Normal mg/dL (Negative) Urine Leukocyte Esterase 1+ /uL (Negative) Urine RBC 7 /hpf (0 - 4) Urine Microscopic WBC 11 /HPF (0-5) H Urine Squamous Epithelial Cells Many /hpf (<5) Urine Bacteria Few /hpf (None Seen) H Urine Mucus Few (None Seen) Urine Glucose Normal mg/dL (Normal) Urine Test Negative (Negative) Assessment/Plan Assessment/Plan 40-year-old female presented to the hospital with the abdominal pain nausea and vomiting found to have 1. Acute appendicitis status post laparoscopic appendectomy 2. Leukocytosis likely reactive 3. Hypothyroidism 4. Morbid obesity classII -continue empirical antibiotics pain meds as needed DVT GI prophylaxis -discharge plan per General surgery. Plan discussed with: Patient My Orders Orders - PALMER LOZADA MD Procedure Category Date Status Time Enoxaparin Sodium PHA 05/09/25 In Process (Lovenox) 10:00 Soft Diet DIET 05/08/25 Transmitted Lunch Date of Service: May 08, 2025 Billing Provider: PALMER LOZADA MD Common Visit Codes: [id number] INP/OBS CARE(MOD) PALMER LOZADA MD May 08, 2025 15:02
[2025-05-09 01:00] VITALS: BP 106/73; PULSE 92; RESP 17; TEMP 97.5; O2SAT 94
[2025-05-09 05:00] VITALS: BP 94/62; PULSE 91; RESP 17; TEMP 98.1; O2SAT 96
[2025-05-09 08:00] VITALS: PULSE 74; O2SAT 96
[2025-05-09 09:00] VITALS: BP 113/71; PULSE 74; RESP 18; TEMP 98; O2SAT 96
[2025-05-09] MEDS: ENOXAPARIN SOD 40 MG/0.4 ML SYRINGE SC SCH (10:00)
[2025-05-09 13:00] VITALS: BP 109/67; PULSE 82; RESP 18; TEMP 98; O2SAT 95
[2025-05-09] MEDS ORDERED: NALO4SPR2 (13:14)
[2025-05-09] MEDS ORDERED: AUG875T PO (13:14)
[2025-05-09] MEDS ORDERED: HYDR-4902 PO (13:14)
--- NOTE | 2025-05-09 13:17 | DVHDS2 ---
Discharge Summary Date of Admission May 07, 2025 at 09:02 Date of Discharge: May 09, 2025 Labs/Diagnostic Data: Laboratory Results Test 05/08/25 04:39 05/07/25 09:13 05/07/25 07:16 05/07/25 04:52 White Blood Count 16.9 10^3/uL (4.4-10.8) Red Blood Count 4.46 10^6/uL (4.0-5.20) Hemoglobin 13.4 g/dL (12.2-16.2) Hematocrit 40.1 % (36.0-46.0) Mean Corpuscular Volume 89.8 fL (80.0-100.0) Mean Corpuscular Hemoglobin 30.0 pg (28.0-32.0) Mean Corpuscular Hemoglobin Concent 33.4 g/dL (32.0-36.0) Red Cell Distribution Width 14.5 % (11.8-14.3) Platelet Count 265 10^3/uL (140-450) Mean Platelet Volume 9.3 fL (6.9-10.8) Neutrophils (%) (Auto) 86.3 % (37.0-80.0) Lymphocytes (%) (Auto) 10.1 % (10.0-50.0) Monocytes (%) (Auto) 3.5 % (0.0-12.0) Eosinophils (%) (Auto) 0.0 % (0.0-7.0) Basophils (%) (Auto) 0.1 % (0.0-2.0) Neutrophils # (Auto) 14.6 10 ^3/uL (1.6-8.6) Lymphocytes # (Auto) 1.7 10 ^3/uL (0.4-5.4) Monocytes # (Auto) 0.6 10 ^3/uL (0-1.3) Eosinophils # (Auto) 0 10 ^3/uL (0-0.8) Basophils # (Auto) 0 10 ^3/uL (0-0.2) Nucleated Red Blood Cells 0.1 % Sodium Level 141 mmol/L (136-145) Potassium Level 3.7 mmol/L (3.5-5.1) Chloride Level 106 mmol/L (98-107) Carbon Dioxide Level 23 mmol/L (20-31) Anion Gap 12 (5-15) Blood Urea Nitrogen < 5 mg/dL (9-23) Creatinine 0.62 mg/dL (0.550-1.02) Glomerular Filtration Rate Calc 115 mL/min (>90) BUN/Creatinine Ratio 8.1 (10.0-20.0) Serum Glucose 105 mg/dL (74-106) Calcium Level 9.3 mg/dL (8.7-10.4) Total Bilirubin 0.4 mg/dL (0.2-1.0) Aspartate Amino Transferase (AST) 65 U/L (<34) Alanine Aminotransferase (ALT) 103 U/L (7-40) Alkaline Phosphatase 112 U/L (46-116) Total Protein 6.6 g/dL (5.7-8.2) Albumin 3.9 g/dL (3.2-4.8) Prothrombin Time 10.4 sec (9.3-11.8) Prothrombin Time INR 0.98 (0.9-1.15) Urine Color Yellow (Yellow) Urine Clarity Hazy (Clear) Urine pH 5.5 (5.0-9.0) Urine Specific [place] 1.027 (1.001-1.035) Urine Protein Negative (Negative) Urine Ketones Negative (Negative) Urine Blood Normal /uL (Negative) Urine Nitrite Negative (Negative) Urine Bilirubin Negative (Negative) Urine Urobilinogen Normal mg/dL (Negative) Urine Leukocyte Esterase 1+ /uL (Negative) Urine RBC 7 /hpf (0 - 4) Urine Microscopic WBC 11 /HPF (0-5) Urine Squamous Epithelial Cells Many /hpf (<5) Urine Bacteria Few /hpf (None Seen) Urine Mucus Few (None Seen) Urine Glucose Normal mg/dL (Normal) Urine Test Negative (Negative) Lipase 37 U/L (12-53) Other Laboratory Tests 05/08/25 04:39 Brief Hx & Hospital Course: 40-year-old female presented to the hospital with the abdominal pain nausea and vomiting found to have acute appendicitis. Patient was seen by General surgery underwent laparoscopic appendectomy. Postoperatively patient did fairly well currently tolerating diet and requesting to go home. General surgery cleared the patient to be discharged on pain pills as well as some antibiotic for few days. Patient is being discharged under stable condition. Diet weight reduction and exercise counseling because of morbid obesity classII was discussed with the patient's who understand verbalized understanding and agreeable to plan Condition at Discharge: Stable Final Diagnosis/Problems List 40-year-old female presented to the hospital with the abdominal pain nausea and vomiting found to have 1. Acute appendicitis status post laparoscopic appendectomy 2. Leukocytosis likely reactive 3. Hypothyroidism 4. Morbid obesity classII Discharge Disposition: Home SNF Discharge Will this Physician continue t: No Discharge Instruct/Medications Diet: Cardiac 2g Na,low cholest Activity: See Comment Activity comment: No strenuous activity until you see General surgery. No driving, no playing on a machinery, no signing legal documents while on narcotics. Follow Up/Referral: Follow up with the General surgery in one week with a repeat CMP to make sure liver functions are okay Medications: Augmentin [place] nausea and as prescribed. Discharge Statement: "Patient was advised to return to the ER or call 911 if any headaches, dizziness, shortness of breath, chest pain, abdominal pain, bleeding, fevers, or worsening of medical condition. Patient was counseled about treatment plan, medications, possible side effects, patientverbalized understanding. All questions were answered to the best of my ability. This discharge took greater then 30 minutes in planning, reviewing documentation, counseling the patient, and discussing with other team members." ASSESSMENT ASSESSMENT Assessment 40-year-old female presented to the hospital with the abdominal pain nausea and vomiting found to have 1. Acute appendicitis status post laparoscopic appendectomy 2. Leukocytosis likely reactive 3. Hypothyroidism 4. Morbid obesity classII Date of Service: May 09, 2025 Billing Provider: PALMER LOZADA MD Common Visit Codes: [id number]-OYE/OBS DISCH DAY >30min PALMER LOZADA MD May 09, 2025 13:17
--- NOTE | 2025-05-09 13:56 | DVHPN2 ---
Progress Note Date Seen: May 09, 2025 Medical Necessity Reason Pt with a Central, PICC or Fol: No Objective vital signs Vital Sign Date Time Temp Pulse Resp B/P (MAP) Pulse Ox O2 Delivery O2 Flow Rate FiO2 05/09/25 09:00 98.0 74 18 113/71 (85) 96 98.0 05/09/25 08:00 Room Air* 0 21 Total Intake and Output 05/08/25 05/08/25 05/09/25 15:00 23:00 07:00 Intake Total 150 ml 750 ml 750 ml Balance 150 ml 750 ml 750 ml medications Current Medications Medications Dose Ordered Sig/Nena Route Start Time Stop Time Status Last Admin Dose Admin Ondansetron HCl 4 mg Q4HP PRN IV 05/07/25 09:15 05/08/25 06:35 4 MG Docusate Sodium 100 mg BIDPRN PRN PO 05/07/25 09:15 Morphine Sulfate 2 mg Q4HPRN PRN IV 05/07/25 09:15 05/08/25 06:36 2 MG Nitroglycerin 0.4 mg Q5MINP PRN SL 05/07/25 09:15 Pantoprazole Sodium 40 mg DAILY IV 05/08/25 10:00 05/09/25 08:47 40 MG Potassium Chloride/Dextrose/ Sod Cl 1,000 ml @ 120 mls/hr Q8H20M IV 05/07/25 12:15 05/09/25 05:55 120 MLS/HR Enoxaparin Sodium 40 mg DAILY SC 05/09/25 10:00 Amoxicillin/ Clavulanate Potassium 875 mg Q12HR PO 05/09/25 22:00 UNV laboratory and microbiology Laboratory Tests 05/08/25 04:39 Test 05/08/25 04:39 Range/Units Serum Glucose 105 74-106 mg/dL Problem List/Assessment/Plan Problem List/Assessment/Plan 05/09/25 doing well, wounds clean AND WELL APPROXIMATED, ABDOMEN APPROPRIATELY TENDER, CLEARED FOR DISCHARGE Plan discussed with: Patient MONIK MONTALVO MD May 09, 2025 13:56
[2025-05-09] MEDS: AMOXICILLIN/CLAVUL 875 MG TAB PO ONE (16:04)
[2025-05-09] MEDS ORDERED: AMOXICILLIN/CLAVUL 875 MG TAB PO SCH (22:00)
== END 2025-05-09 16:28 | disposition home or self-care (01) | DRG 234 ==
LOC: ER 04:26 → OVERFLOW 09:02 → CENTRAL 14:10
PROVIDERS: ADMIT Internal Medicine; ATTEND Internal Medicine
PROC: 0DTJ4ZZ Resection of Appendix, Percutaneous Endoscopic Approach (ICD-10-PCS; principal; 2025-05-07 11:21)
DX: K35.80 Unspecified acute appendicitis (principal); E03.9 Hypothyroidism, unspecified; R74.01 Elevation of levels of liver transaminase levels; E66.01 Morbid (severe) obesity due to excess calories; Z68.35 Body mass index [BMI] 35.0-35.9, adult
CPT/HCPCS: 36415; 71045; 74176; 80053; 81001; 81025; 83690; 85025; 85610; 86850; 86900; 86901; 96361; 96374; 96375; G0378; J0131; J2250; J2405; J2470; J3490